=== PATIENT | male | born 1960 | race Caucasian/White ===

== ENCOUNTER 2021-08-17 08:10 | Day surgery (SDC) | payer BC, SELFPAY ==
[2021-08-17 08:38] VITALS: BP 138/95; PULSE 96; RESP 16; TEMP 36.6; O2SAT 97
[2021-08-17] MEDS: Tropicam./Phenyleph. (1/2.5%) 5 ML BTL OS ×3 (08:45→08:55)
--- NOTE | 2021-08-17 09:14 | W.ANESPRE ---
General Info Date of Service Date Performed: 08/17/21 Height: 5 ft 11 in Weight: 98 kg Body Mass Index (BMI): 30.1 Surgical Procedure: Operation Date: 08/17/21 10:40 Proposed Procedure Side Surgeon p Cataract Extraction with IOL Implant Left Edmund Mccarty MD Meds Allergies and Home Medications Allergies Allergy/AdvReac Type Severity Reaction Status Date / Time No Known Allergies Allergy Verified 08/17/21 08:34 Home Medication Medication Instructions Recorded atorvastatin 20 mg tablet (Lipitor) 20 mg PO DAILY 02/05/19 lisinopril 20 1 tab PO DAILY 02/05/19 mg-hydrochlorothiazide 12.5 mg tablet allopurinol 100 mg tablet 200 mg PO DAILY tab 03/03/19 omeprazole 40 mg capsule,delayed 40 mg PO DAILY cap 03/03/19 release folic acid 1 mg tablet 2 mg PO DAILY tab 06/21/19 multivitamin 1 tab PO DAILY 06/21/19 mecobalamin (vitamin B12) 1,000 1,000 mcg PO HS tab 01/09/21 mcg chewable tablet colchicine 0.6 mg tablet 0.6 mg PO DAILY 08/15/21 duloxetine 60 mg capsule,delayed 60 mg PO DAILY 08/15/21 release gabapentin 800 mg tablet 4,000 mg PO DAILY 08/15/21 Current Visit Medications: Current Medications Generic Name Dose Route Start Last Admin Trade Name Freq PRN Reason Stop Dose Admin Acetaminophen 1,000 mg 08/17/21 06:00 Acetaminophen 500 Mg Tab PO Q4H PRN PRN Miscellaneous Medication 0 ml 08/17/21 06:00 Prednisolone 1%, Moxifloxacin 0.5%, Nepafenac 0.1% 5ml Btl OS DIRECTED ZANA Miscellaneous Medication 0 ml 08/17/21 06:00 08/17/21 08:55 Tropicam./Phenyleph. 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 RLS (restless legs syndrome) G25.81 Neuropathic pain M79.2 Hereditary peripheral neuropathy G60.9 Medical History Medical History BPH (benign prostatic hyperplasia) Gastritis Gout Hyperlipidemia Hypertension OSEAS (obstructive sleep apnea) Surgical History Surgical History Hx of detached retina repair S/P cholecystectomy S/P skin neoplasm resection chest tumor as kid Tobacco Smoking/Tobacco Use Status: Former Tobacco Use Alcohol Alcohol Intake: never Substance Use Substance use: Daily Substance use type: marijuana Vital Signs and Lab Results Vital Signs Most Recent Vital Signs in EMR: Most Recent Vital Signs Temp Pulse Resp BP Pulse Ox 36.6 C 96 H 16 138/95 H 97 08/17/21 08:38 08/17/21 08:38 08/17/21 08:38 08/17/21 08:38 08/17/21 08:38 Lab Results Blood Type / Crossmatch: No Data to Display Complete Blood Count: No Data to Display Complete Metabolic Panel: No Data to Display Liver Function Panel: No Data to Display Coagulation Panel: No Data to Display Cardiac Panel: No Data to Display Arterial Blood Gas: No Data to Display Venous Blood Gas: No Data to Display Pancreas Panel: No Data to Display Thyroid Panel: No Data to Display Infectious Disease: No Data to Display Blood Cultures: No Data to Display Toxicology Panel: No Data to Display Anesthesia Assessment and Plan Anesthesia History Personal History: No History of Anesthesia Complications Family History: No Family History of Anesthesia Complications Exercise Tolerance Exercise Tolerance: Metabolic Equivalents>4 Pertinent Negatives Pertinent Negatives: No Symptoms of GERD Cardiac & Pulmonary Exam Cardiac Exam: Normal S1/S2 Heart Sounds Pulmonary Exam: Clear Bilateral Breath Sounds Implantable Cardiac Device Does patient have a Pacemaker or an ICD?: No Airway Exam Known Difficult Airway: No Mallampati Class: 2 Mouth Opening: Normal (> 3cm) Thyromental Distance: Greater than 3 cm Neck Range of Motion: Full ROM Neck Circumference: Normal Teeth Condition: Normal Dentition ASA Classification ASA Score: ASA 2 Emergency Case?: No NPO Status NPO Status: NPO Clears >2 hours, Solids >8 hours Anesthesia Plan Resuscitation Status: Full Code Anesthesia Technique: MAC Anesthesia Airway Planned: Natural Airway Monitors Used: Standard Monitors
[2021-08-17 09:34] VITALS: BMI 30.1
[2021-08-17] MEDS: Tetracaine 0.5% 4 ML BTL OS (10:00)
[2021-08-17] MEDS: Duovisc Viscoelastic System EACH 1 EACH (10:01)
[2021-08-17] MEDS: Balanced Salt Soln.-PLUS 500 ML BAG (10:01)
[2021-08-17] MEDS: Lidocaine 2% Jelly 6 ML SYR (10:02)
[2021-08-17] MEDS: Povidone-Iodine Ophth 30 ML BTL (10:03)
[2021-08-17 10:37] VITALS: BP 153/91; PULSE 86; RESP 16; TEMP 36.4; O2SAT 94
--- NOTE | 2021-08-17 10:40 | W.PM.DSUDISC ---
Discharge Plan Disposition Patient Disposition: HOME Condition: Good Discharge Details Attending Provider: Edmund Mccarty Primary Care Provider: Shanda Rodríguez Home Meds and New Rx's Prescriptions: No Action mecobalamin (vitamin B12) 1,000 mcg tablet,chewable 1,000 mcg PO HS 0RF multivitamin Tablet 1 tab PO DAILY 0RF atorvastatin [Lipitor] 20 mg tablet 20 mg PO DAILY 0RF lisinopril-hydrochlorothiazide 20-12.5 mg tablet 1 tab PO DAILY 0RF allopurinol 100 mg tablet 200 mg PO DAILY 0RF omeprazole 40 mg capsule,delayed release(DR/EC) 40 mg PO DAILY 0RF folic acid 1 mg tablet 2 mg PO DAILY 0RF colchicine 0.6 mg Tablet 0.6 mg PO DAILY 0RF duloxetine 60 mg Capsule,Delayed Release(Dr/Ec) 60 mg PO DAILY 0RF gabapentin 800 mg tablet 4,000 mg PO DAILY 0RF Rx Instructions: Discharge Instructions Stand Alone Forms: Post-op Topical Cataract, Tara Pina (DSU) Discharge Orders Discharge Orders: Discharge Order (Routine); Ordered 08/17/21 Ordered By: Edmund Mccarty DS: Diagnosis Discharge Diagnosis (1) Nuclear sclerotic cataract of left eye: Status: Resolved
--- NOTE | 2021-08-17 10:41 | W.PM.OP ---
Date of service: 08/17/21 Time of Service: 10:41 Operative Note Operative Note DATE OF PROCEDURE: 08/17/21 PRE-OP DIAGNOSIS: Nuclear cataract, left eye History of retinal tear/detachment, left eye, status post POST-OP DIAGNOSIS: same PROCEDURE: Cataract extraction using phacoemulsification with intraocular lens implant, left eye SURGEON: Edmund Mccarty ANESTHESIA TYPE: Local By Surgeon and MAC Refer to Anesthesia Record PATHOLOGY: none sent COMPLICATIONS: Other (Subincisional radial anterior capsular tear) Patient was transported to: same day Patient's condition: stable Implants: [employer] / [employer] Tecnis [id number] Indications: Progressive decreased vision due to cataract, left eye Procedure Description: CATARACT SURGERY OPERATIVE REPORT PREOPERATIVE DIAGNOSIS: 1. Nuclear cataract, left eye 2. Status post retinal tear/detachment, left eye, status post retinopexy POSTOPERATIVE DIAGNOSIS: Same OPERATION: 1. Cataract extraction using phacoemulsification with posterior chamber intraocular lens implant, left eye. IOL: IOL Heel Compressor/Model: [employer] Reg[employer] / NUNU Tecnis ZCB00 IOL Power: + 17.0 diopters IOL Serial Number: [id number] Optic Diameter: 6.0 mm Haptic/Overall Diameter: 13.0 mm PHACO INFO: Froylan Centurion Vision System with OZil and Active Fluidics Cumulative Dispersed Energy (CDE): 9.45 seconds SURGEON: Edmund Mccarty MD, OMKAR ANESTHESIA: Monitored A [facility] (MAC), with local sub-tenon's anesthetic infiltration COMPLICATIONS: None SPECIMENS: None INDICATIONS FOR PROCEDURE: The patient is a 60-year-old male who has previously had a retinal tear/detachment of the left eye and has undergone previous repair/retinopexy. He has developed a symptomatic nuclear cataract in the left eye and desires cataract surgery and attempt to improve and maximize his vision. PROCEDURE: The correct surgical eye was identified and marked as the left eye and the pupil was dilated in the preoperative area using mydriatics and cycloplegics. The dilated pupil size was 7.0 mm. Oral sedation was administered in the form of an Imprimis MKO Melt (midazolam 3mg/ketamine 25mg/ondansetron 2mg). The patient was brought to the operating room where cardiopulmonary monitoring was instituted and surgical time-out was performed, confirming the correct operative eye and IOL power. Topical anesthesia was administered and ophthalmic povidone-iodine 5% was instilled into the conjunctival fornices. Lidocaine gel was applied to the cornea and the paulo-ocular area was prepped with Betadine 10% solution and draped in the usual sterile fashion for intraocular surgery, including an aperture drape. A Tegaderm transparent film dressing was cut in half and used to cover the lashes and lid margins. Care was taken to sequester the lashes and lid margins under the Tegaderm dressing. A lid speculum was placed between the lids of the operative eye and the Froylan Whimseybox[employer] Revalia operating microscope was maneuvered into position. Eric scissors were then used to make a conjunctival buttonhole approximately 6mm posterior to the limbus in the inferonasal quadrant. Blunt dissection was carried out to expose bare sclera, and a blunt-tipped sub-tenon?s anesthesia cannula was introduced and passed posteriorly along the globe where non-preserved plain lidocaine was injected into posterior sub-Tenon?s space. A sideport knife was used to make a paracentesis port superiorly/superiortemporally. Intraocular phenylephrine/lidocaine was injected int the anterior chamber.. The anterior chamber was filled with viscoelastic. A 2.4mm keratome knife was used to create a half-thickness groove at the limbus and then to construct a three-plane near-clear corneal tunnel extending 2.0mm into clear cornea at the 3:00 position. A flap was raised on the anterior capsule and capsulorhexis forceps were used to initiate a capsulorhexis beginning at the 2 o'clock position, proceeding counterclockwise. Capsulorrhexis forceps were then used to propagate a continuous curvilinear capsulorrhexis. At approximately the 130 o'clock position, the patient suddenly moved his head/eye to his right, causing an anterior radial capsular tear. The movement was so violent that the capsulorrhexis forcep and capsular flap were outside the eye. The head was stabilized, and scissors were used to amputate the capsular flap at the main phaco incision. Viscoat was used to reposit the remainder of the anterior capsular flap into the eye. The capsulorrhexis was approximately 5.0 mm in size. [place] dissection was avoided, but hydrodelineation was undertaken. The lens nucleus was then disassembled and removed within the capsular bag and iris plane using phacoemulsification, using a slow motion technique with low flow settings. A vertical chop setting was used to remove the nucleus. With the phaco tip still in the eye apposition 0, additional Viscoat was used to fill the anterior chamber to prevent it from collapsing. The epinuclear shell and cortex remained, which were removed slowly using the 45-degree angled silicone I/A tip with 0.3mm port. The area of the radial capsular tear was left until last. This was very carefully removed, taking care to use tangential traction to avoid propagation of the radial tear. The posterior capsule was carefully polished to remove as much residual lens epithelial cells as safely possible. There was a small amount of residual posterior subcapsular plaque inferiorly which could not be safely removed. Prior to removing the I/A tip, Provisc was used to fill the anterior chamber. bag was then inflated and the anterior chamber deepened with viscoelastic. The lens implant described above was inserted into the capsular bag using the NUNU [place] Injector. A Kuglen hook was used to dial the IOL into position. The haptics were oriented 90 degrees away from the radial capsular tear. Residual viscoelastic was then removed from the anterior chamber using the I/A handpiece. The lens implant was noted to center nicely within the capsular bag, with complete overlap of the anterior capsular edge over the lens optic except in the area of the radial tear. The side-port incision was stromally hydrated and the anterior chamber was reformed using BSS. Miostat was then injected into the anterior chamber. The irrigation/aspiration handpiece was then gently removed from the eye, taking care to avoid collapse of the anterior chamber. The main phaco incision was then stromally hydrated. We waited several minutes for the Miostat to take effect, and once the pupil margin was completely covering the peripheral lens optic and the capsular edge, then 0.5cc of moxifloxacin 1.0mg/ml were injected into the anterior chamber. The incisions were checked with a Weck spear and found to be secure. Several drops of ophthalmic povidone-iodine 5% were then applied to the eye followed by two drops of Imprimis combination prednisolone/moxifloxacin/nepafenac solution. The drapes were removed and a clear plastic protective eye shield was placed over the eye. The patient was then returned to Same Day Surgery in stable condition.
--- NOTE | 2021-08-17 10:57 | W.ANESPOSTOP ---
Postoperative Evaluation Date, Time and Location Date Performed: 08/17/21 Time Performed: 10:45 Patient Location: Day Surgery Unit Vital Signs Most Recent Imported Vital Signs: Most Recent Vital Signs Temp Pulse Resp BP Pulse Ox 36.4 C L 86 16 153/91 H 94 08/17/21 10:37 08/17/21 10:37 08/17/21 10:37 08/17/21 10:37 08/17/21 10:37 Pain Score Most Recent Pain Score: Most Recent Pain Score Pain Level 0 08/17/21 10:37 Assessment Mental Status: Awake (Alert & Oriented to Patient Baseline) Airway and Respiratory Function: Patent airway with normal (patient baseline) respiratory exam Cardiovascular Function: Hemodynamically Stable Hydration Status: Adequately Hydrated Nausea & Vomiting: No Nausea or Vomiting Pain: Pt. Denies Any Pain Peripheral Nerve Block: Patient did not receive a nerve block
[2021-08-17 11:08] VITALS: BP 136/97; PULSE 65; RESP 16; TEMP 36.5; O2SAT 97
== END 2021-08-17 11:10 | disposition home or self-care (01) ==
PROVIDERS: PCP Internal Medicine; Visit Provider Ophthalmology
PROC: (CPT 66984; principal; 2021-08-17 10:30)
DX: H25.12 Age-related nuclear cataract, left eye (principal); H59.212 Accidental puncture and laceration of left eye and adnexa during an ophthalmic procedure
CPT/HCPCS: 66984; V2632